=== PATIENT | male | born 1995 | race Caucasian/White ===

== ENCOUNTER → 2017-02-12 | Outpatient (CLI) | payer OTHER | LOC: FIMAGING 11:41 | PROVIDERS: ATTEND Nurse Practitioner Family | DX: M48.07 Spinal stenosis, lumbosacral region (principal); M62.830 Muscle spasm of back; M46.97 Unspecified inflammatory spondylopathy, lumbosacral region; M51.27 Other intervertebral disc displacement, lumbosacral region ==